=== PATIENT | female | born 1970 | race African-American/Black ===

== ENCOUNTER 2018-09-24 12:40 | Emergency (ER) | payer OTHER ==
[2018-09-24] MEDS ORDERED: FLEXERIL PO (14:02)
[2018-09-24] MEDS ORDERED: IBUPROFEN600 MG PO (14:02)
[2018-09-24 14:10] VITALS: BP 134/85
== END 2018-09-24 14:10 | disposition home or self-care (01) | DRG 552 ==
LOC: ED 12:40
DX: S16.1XXA Strain of muscle, fascia and tendon at neck level, initial encounter (principal); M25.511 Pain in right shoulder; I10 Essential (primary) hypertension; V43.52XA Car driver injured in collision with other type car in traffic accident, initial encounter